=== PATIENT | female | born 1940 | race Caucasian/White ===

== ENCOUNTER 2016-07-03 18:09 | Emergency (ER) | payer OTHER ==
[~2016-07-03] VITALS: Ht 157.5 cm; Wt 59.0 kg
[~2016-07-03 18:09] MED LIST: CALCIUM CHLOR(10%) 100MG/ML 10ML SYRINGE IV ONE; DEXTROSE (50%) 50ML SYRG IV ONE; EPINEPHrine HCL 1 MG/10 ML SYRG IV ONE
[2016-07-03 18:15] VITALS: BP 0/0
[2016-07-03] MEDS ORDERED: MIDAZOLAM DRIP 100 mg/100mL NS 100 ML IV ONE (18:19)
[2016-07-03] MEDS ORDERED: NOREPINEPHRINE BITARTRATE 250 ML IV ONE (18:24)
[2016-07-03] MEDS ORDERED: EPINEPHrine HCL 1 MG/10 ML SYRG ONE ×4 (18:28→18:50)
[2016-07-03 18:55] LABS: DEFINITIVE VIEW TRANSMISSION; Hemoglobin 12.6 g/dL (12.2-16.2); Mean Corpuscular Hemoglobin 29.8 pg (28.0-32.0); Mean Corpuscular Hgb Conc. 32.3 g/dL (32.0-36.0); Mean Corpuscular Volume 92.2 fL (80.0-100.0); Mean Platelet Volume 9.6 fL (7.4-10.4); Platelet Count (auto) 298 10^3/uL (140-450); Red Cell Distribution Width 13.3 % (11.6-16.0); White Blood Cell 20.2 10^3/uL (4.4-10.8)
[2016-07-03 19:16] LABS: Albumin 2.9 g/dL (3.4-5.0); BUN/Creatinine Ratio 9.8; Calcium 8.7 mg/dL (8.5-10.1); Potassium 4.1 mmol/L (3.5-5.1)
[2016-07-03 19:20] LABS: Bilirubin, Total 0.3 mg/dL (0.2-1.0); Metamyelocytes % 0; Myelocytes % 0; Promyelocytes % 0; Reactive Lymphocytes 0
[2016-07-03 19:33] LABS: Burr Cells MODERATE; Giant Platelets Few; Platelet Estimate Adequate
[2016-07-03 20:47] LABS: B-Type Natriuretic Peptide 82.76 pg/mL (0-100)
[2016-07-03 20:50] LABS: Temperature: 21.6 C (20.0-25.0)
== END 2016-07-03 18:57 | disposition expired ==
LOC: ER 18:11
DX: I46.9 Cardiac arrest, cause unspecified (principal)
CPT/HCPCS: 31500; 36415; 76775; 80053; 83880; 84484; 85007; 85027; 85379; 87070; 87205; 92950; 93005; 94002; 99285; J0171; J3490; J7042